=== PATIENT | female | born 1995 | race African-American/Black ===

== ENCOUNTER 2021-06-20 17:54 | Emergency (ER) | payer MEDICAID, OTHER ==
[2021-06-20] MEDS ORDERED: HYDROcodone/Acetaminophen 10/325 mg Tablet ONE (18:33)
[2021-06-20] MEDS ORDERED: Ketorolac Tromethamine 30 MG/ML VIAL ONE (18:33)
== END 2021-06-20 18:57 | disposition home or self-care (01) ==
LOC: CSHERS 17:54
DX: K04.7 Periapical abscess without sinus (principal)
CPT/HCPCS: 96372; 99283; J1885

== ENCOUNTER 2021-08-15 18:45 | Emergency (ER) | payer OTHER ==
[2021-08-15] MEDS ORDERED: Ketorolac Tromethamine 30 MG/ML VIAL ONE (19:29)
== END 2021-08-15 19:46 | disposition home or self-care (01) ==
LOC: CSHERS 18:45
DX: K02.9 Dental caries, unspecified (principal); J45.909 Unspecified asthma, uncomplicated; F17.210 Nicotine dependence, cigarettes, uncomplicated
CPT/HCPCS: 96372; 99282; J1885

== ENCOUNTER 2023-09-26 14:27 | Emergency (ER) | payer MEDICAID | END 2023-09-26 15:49 | disposition home or self-care (01) | LOC: CSHERS 14:27 | DX: L02.214 Cutaneous abscess of groin (principal); Z76.5 Malingerer [conscious simulation]; F17.210 Nicotine dependence, cigarettes, uncomplicated; Z55.6 Problems related to health literacy | CPT/HCPCS: 99283 ==

== ENCOUNTER 2024-02-28 22:08 | Emergency (ER) | payer MEDICAID, OTHER, SELFPAY ==
[2024-02-28] MEDS ORDERED: Ondansetron ODT 4 MG TAB ONE (23:12)
[2024-02-28] MEDS ORDERED: Ibuprofen 200 MG TAB ONE (23:12)
== END 2024-02-28 23:03 | disposition home or self-care (01) ==
LOC: CSHERS 22:08
DX: K04.7 Periapical abscess without sinus (principal); R11.2 Nausea with vomiting, unspecified; F17.210 Nicotine dependence, cigarettes, uncomplicated
CPT/HCPCS: 99283; Q0162